=== PATIENT | female | born 1995 | race Caucasian/White ===

== ENCOUNTER 2017-08-31 19:39 | Emergency (ER) | payer OTHER ==
[2017-08-31 20:05] VITALS: BP 119/69
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
== END 2017-08-31 21:59 | disposition home or self-care (01) ==
LOC: ER 19:39
DX: M54.2 Cervicalgia (principal); M54.9 Dorsalgia, unspecified; M54.5 Low back pain; M53.3 Sacrococcygeal disorders, not elsewhere classified; V87.7XXA Person injured in collision between other specified motor vehicles (traffic), initial encounter
CPT/HCPCS: 72110; 72220; 81025; 99283